=== PATIENT | male | born 1970 | race Caucasian/White ===

== ENCOUNTER 2024-06-12 10:00 | Outpatient (OUT) | payer OTHER, SELFPAY ==
--- NOTE | 2024-06-12 10:08 | XR_ITS ---
The [address] [address] Patient Name: LOUISE LONDONO MRN: [id number] date: 1970 Sex: M Assigned Patient Location: [facility] Current Patient Location: Accession/Order Number: [id number] Exam Date: 06/12/2024 10:12 Report Date: 06/14/2024 06:34 At the request of: JOSÉ MANUEL JONES Procedure: XR shoulder LT min 2V PROCEDURE: XR shoulder LT min 2V HISTORY: injury of left shoulder, left shoulder pain ; chronic left shoulder pain COMPARISON: None. FINDINGS: BONES:Narrowing of the acromioclavicular joint with small undersurface osteophytes. Unremarkable glenohumeral joint. SOFT TISSUES:No visible soft tissue swelling. EFFUSION:None visible. OTHER: Negative. XR/XR shoulder LT min 2V IMPRESSION: 1. Moderate degenerative changes of the acromioclavicular joint which would predispose to rotator cuff injury. 2. No acute bone abnormality. Electronically authenticated by: NEAL SCHUMACHER Date: 06/14/2024 06:34
== END 2024-06-12 10:01 | disposition home or self-care (01) ==
LOC: RAD 10:03
PROVIDERS: PCP Nurse Practitioner Family; Visit Provider Nurse Practitioner Family
DX: M25.512 Pain in left shoulder (principal); S49.92XA Unspecified injury of left shoulder and upper arm, initial encounter
CPT/HCPCS: 73030

== ENCOUNTER 2024-12-15 07:53 | Outpatient (OUT) | payer OTHER, SELFPAY ==
--- NOTE | 2024-12-15 08:03 | US_ITS ---
[address] [address] Patient Name: LOUISE LONDONO MRN: [id number] date: 1970 Sex: M Assigned Patient Location: [place] Current Patient Location: [place] Accession/Order Number: [id number] Exam Date: 12/15/2024 10:35 Report Date: 12/15/2024 10:39 At the request of: JOSÉ MANUEL JONES Procedure: US right upper quadrant LIMITED ABDOMINAL ULTRASOUND: CLINICAL HISTORY: Gallbladder Polyp COMPARISON: None TECHNIQUE: Grayscale and color Doppler images of the right upper quadrant organs were obtained. FINDINGS: Pancreas: Visualized portions appear unremarkable. Liver: Fatty infiltration. Gallbladder: 4 mm polyps versus adherent stones. CBD: 6.6 mm RT KIDNEY: No Hydronephrosis US/US right upper quadrant IMPRESSION: SMALL GALLBLADDER POLYPS VERSUS ADHERENT STONES. NO ACUTE PROCESS. FATTY INFILTRATION OF LIVER.. Impression dictated by: Louise Ponce Jr., D.O. 12/15/2024 10:39 AM Dictation Location: [place] [address] Electronically authenticated by: [id number] Date: 12/15/2024 10:39
== END 2024-12-15 07:54 | disposition home or self-care (01) ==
LOC: US 07:54
PROVIDERS: PCP Nurse Practitioner Family; Visit Provider Nurse Practitioner Family
DX: K82.4 Cholesterolosis of gallbladder (principal)
CPT/HCPCS: 76705